=== PATIENT | male | born 1960 | race Two or more races ===

== ENCOUNTER 2023-05-08 06:47 | Day surgery (SDC) | payer OTHER | END 2023-05-08 13:15 | disposition home or self-care (01) | LOC: AMB-ENDOS 06:47 | PROVIDERS: ATTEND Colon & Rectal Surgery | DX: C20 Malignant neoplasm of rectum (principal); Z20.822 Contact with and (suspected) exposure to COVID-19 ==

== ENCOUNTER 2023-05-30 15:55 | Inpatient (IN) | payer OTHER ==
[~2023-05-30] VITALS: Ht 152.4 cm; Wt 59.0 kg
[2023-05-31] MEDS ORDERED: PERCOCET 10-321 EACH PO (08:31)
[2023-05-31] MEDS ORDERED: ZOFRAN8 MG PO (08:32)
[2023-05-31] MEDS ORDERED: MILLIPRED5 MG PO (08:32)
[2023-05-31] MEDS ORDERED: LUPRON DEPOT3.75 M1 IM (08:33)
[2023-05-31] MEDS ORDERED: [UNRECOGNIZED DRUG - OTHER] (08:34)
[2023-06-05] MEDS ORDERED: ABIRATERONE AC250 MG (15:30)
[2023-06-05] MEDS ORDERED: FENTANYL1 EAC4 (15:31)
[2023-06-05] MEDS ORDERED: RAYOS5 MG (15:31)
== END 2023-06-08 15:01 | disposition home or self-care (01) | DRG 330 ==
LOC: O/R 06-05 11:00 → SURH 06-05 11:00
PROVIDERS: ADMIT Colon & Rectal Surgery; ATTEND Colon & Rectal Surgery
PROC: 0D1B4Z4 Bypass Ileum to Cutaneous, Percutaneous Endoscopic Approach (ICD-10-PCS; principal; 2023-06-05 15:30)
DX: C20 Malignant neoplasm of rectum (principal); K92.1 Melena; Z85.46 Personal history of malignant neoplasm of prostate

== ENCOUNTER 2023-06-12 08:39 | Emergency (ER) | payer OTHER ==
[~2023-06-12] VITALS: Ht 162.6 cm; Wt 59.0 kg
[~2023-06-12 08:39] MED LIST: ABIRATERONE AC250 MG; FENTANYL1 EAC4; LUPRON DEPOT3.75 M1 IM; MILLIPRED5 MG PO; PERCOCET 10-321 EACH PO; RAYOS5 MG; ZOFRAN8 MG PO; [UNRECOGNIZED DRUG - OTHER]
== END 2023-06-12 18:56 | disposition home or self-care (01) ==
LOC: ER 08:39
DX: R10.84 Generalized abdominal pain (principal); R11.10 Vomiting, unspecified; Z88.0 Allergy status to penicillin; E86.0 Dehydration